=== PATIENT | male | born 1970 | race Caucasian/White ===

== ENCOUNTER 2024-09-04 08:06 | Day surgery (SDC) | payer BC ==
[~2024-09-04 08:06] MED LIST: HYDROmorphone 0.5 MG/0.5 ML Syringe IVPUSH PRN; Ondansetron 4 MG/2 ML SDV IVPUSH PRN; Sodium Chloride 0.9% 10 ML Syringe FLUSH PRN; Sodium Chloride 0.9% 10 ML Syringe FLUSH SCH; fentaNYL 100 MCG/2 ML SDV IVPUSH PRN
[2024-09-04] MEDS ORDERED: Propofol 200 MG/20 ML SDV ONE ×2 (08:12→08:55)
[2024-09-04] MEDS: Lactated Ringers 1,000 ML IV SCH (08:30)
[2024-09-04] MEDS ORDERED: fentaNYL 100 MCG/2 ML SDV ONE (08:55)
[2024-09-04] MEDS ORDERED: Lidocaine 1% 4 ML ONE (08:55)
[2024-09-04] MEDS ORDERED: Midazolam 1 MG/ML 2 ML SDV ONE (09:22)
== END 2024-09-04 10:40 | disposition home or self-care (01) ==
LOC: JD.SDS 08:06
PROVIDERS: ATTEND Surgery
DX: Z12.11 Encounter for screening for malignant neoplasm of colon (principal); D12.5 Benign neoplasm of sigmoid colon; K21.00 Gastro-esophageal reflux disease with esophagitis, without bleeding; K29.80 Duodenitis without bleeding; I10 Essential (primary) hypertension; E78.00 Pure hypercholesterolemia, unspecified; E03.9 Hypothyroidism, unspecified; Z79.890 Hormone replacement therapy; Z79.899 Other long term (current) drug therapy
CPT/HCPCS: 43239; 45380; J2250; J2704; J3010; J7120; 00813; J3490